=== PATIENT | female | born 1995 | race Caucasian/White ===

== ENCOUNTER 2016-12-05 17:13 | Emergency (ER) | payer OTHER ==
[~2016-12-05] VITALS: Ht 160 cm; Wt 82.7 kg
[~2016-12-05 17:13] MED LIST: IBUP-1542 PO
[2016-12-05 17:23] VITALS: Ht 160 cm; Wt 82.7 kg
== END 2016-12-05 20:41 | disposition left against medical advice (07) ==
LOC: FTE 17:13
DX: Z53.21 Procedure and treatment not carried out due to patient leaving prior to being seen by health care provider (principal)

== ENCOUNTER 2016-12-07 14:04 | Emergency (ER) | payer OTHER ==
[~2016-12-07] VITALS: Wt 100.0 kg
--- NOTE | 2016-12-07 15:01 | ERA ---
ER Documentation Chief Complaint Date/Time DATE: 12/07/16 TIME: 15:00 Chief Complaint L SIDE ABD PAIN FOR THE PAST WEEK. NO N/V/D. NO DYSURIA HPI The patient is 21-year-old female, presenting with epigastric and left sided abdominal discomfort intermittently for 1 week, worse today, worse with eating, /10, associated with nausea and vomiting mostly mucus. She denies similar symptoms previously, he denies fever, chills, neck pain, chest pain, dysuria, diarrhea, constipation. She does not smoke nor drink, currently on her menstrual period Past medical/surgical history: None ROS All systems reviewed and are negative except as per history of present illness. Medications Home Meds Active Scripts Mag Hydrox/Al Hydrox/Simeth (Maalox Advanced Suspension) 355 Ml Oral.susp, 30 ML PO AC MEALS AND BEDTIME, #120 Prov:SANDEEP BAUMAN MD 12/07/16 Ibuprofen* (Motrin*) 600 Mg Tab, 600 MG PO Q6H Y for PAIN AND OR ELEVATED TEMP, #20 TAB Prov:SANDEEP BAUMAN MD 12/07/16 Ibuprofen* (Motrin*) 600 Mg Tab, 600 MG PO Q8, #30 TAB 0 Refills Prov:JHONY BENNETT PA-C 03/07/16 Allergies Allergies: Coded Allergies: No Known Allergy (Unverified , 06/16/15) PMhx/Soc History of Surgery: No Anesthesia Reaction: No Hx Neurological Disorder: No Hx Respiratory Disorders: No Hx Cardiac Disorders: No Hx Psychiatric Problems: No Hx Alcohol Use: No Hx Substance Use: No Hx Tobacco Use: No Physical Exam Vitals Vital Signs Date Time Temp Pulse Resp B/P Pulse Ox O2 Delivery O2 Flow Rate FiO2 12/07/16 19:09 98.4 87 18 114/56 100 Room Air 12/07/16 14:31 98.6 88 21 108/64 98 Physical Exam Const: No acute distress. Head: Atraumatic. Eyes: Normal Conjunctiva. ENT: Normal External Ears, Nose and Mouth. Neck: Full range of motion. No meningismus. Resp: Clear to auscultation bilaterally. Cardio: Regular rate and rhythm, no murmurs. Abd: Soft, non distended, normal bowel sounds, mild epigastric and left lower quadrant discomfort, no rigidity, rebound, CVA, right upper quadrant tenderness Skin: No petechiae or rashes. Back: No midline or flank tenderness. Ext: No cyanosis, or edema. Neur: Awake and alert. No focal deficit Psych: Normal Mood and Affect. Result Diagram: 12/07/16 1535 12/07/16 1535 Results 24 hrs Laboratory Tests Test 12/07/16 15:14 12/07/16 15:35 Bedside Urine Blood 3+ Bedside Urine Glucose (UA) Negative Bedside Urine Ketones (LAB) Negative Bedside Urine Leukocyte Esterase (L Trace Bedside Urine Nitrite (LAB) Negative Bedside Urine Protein (LAB) Negative Bedside Urine pH (LAB) 7.5 Alanine Aminotransferase (ALT/SGPT) 48IU/L Albumin 4.1g/dl Albumin/Globulin Ratio 0.97 Alkaline Phosphatase 66IU/L Anion Gap 16 Aspartate Amino Transf (AST/SGOT) 32IU/L Basophils # 0.010^3/ul Basophils % 0.6% Blood Urea Nitrogen 9mg/dl Calcium Level 9.2mg/dl Carbon Dioxide Level 28mmol/L Chloride Level 104mmol/L Creatinine 0.67mg/dl Direct Bilirubin 0.00mg/dl Eosinophils # 0.110^3/ul Eosinophils % 1.2% Globulin 4.20g/dl Glucose Level 97mg/dl Hematocrit 40.2% Hemoglobin 13.0g/dl Indirect Bilirubin 0.2mg/dl Lipase 37U/L Lymphocytes # 1.710^3/ul Lymphocytes % 24.5% Mean Corpuscular Hemoglobin 29.1pg Mean Corpuscular Hemoglobin Concent 32.3g/dl Mean Corpuscular Volume 90.1fl Mean Platelet Volume 11.2fl Monocytes # 0.510^3/ul Monocytes % 7.9% Neutrophils # 4.510^3/ul Neutrophils % 65.7% Nucleated Red Blood Cells # 0.010^3/ul Nucleated Red Blood Cells % 0.0/100WBC Platelet Count 03926^3/UL Potassium Level 3.9mmol/L Red Blood Count 4.4610^6/ul Red Cell Distribution Width 13.2% Sodium Level 144mmol/L Total Bilirubin 0.2mg/dl Total Protein 8.3g/dl White Blood Count 6.910^3/ul Current Medications Medications (Trade) Dose Ordered Sig/Damien Route PRN Reason Start Time Stop Time Status Last Admin Dose Admin Ketorolac Tromethamine 30 mg 30 mg ONCE STAT IV 12/07/16 16:25 12/07/16 16:26 DC 12/07/16 16:32 Sodium Chloride (NS) 1,000 ml @ 1,000 mls/hr Q1H ONCE IV 12/07/16 17:30 12/07/16 18:29 DC 12/07/16 17:13 Morphine Sulfate (morphine) 2 mg ONCE ONCE IV 12/07/16 17:30 12/07/16 17:31 DC 12/07/16 17:12 Ondansetron HCl (Zofran Inj) 4 mg ONCE STAT IV 12/07/16 17:02 12/07/16 17:04 DC 12/07/16 17:12 Procedures/[place] [id number] Radiology Main Line: [phone] DIAGNOSTIC IMAGING REPORT Patient: COREY SHUKLA : 1995 Age: 21 Sex: F MR #: [id number] DOS: 12/07/16 1711 Ordering MD: SANDEEP BAUMAN MD Location: [facility] Room/Bed: PROCEDURE: US Pelvis CLINICAL INDICATION: Pain TECHNIQUE: Multiple sonographic images of the pelvis were obtained utilizing a transabdominal and endovaginal technique. The images were reviewed on a PACS workstation. COMPARISON: Pelvic ultrasound from 09/14/2014 LMP: 12/06/2016 FINDINGS: The uterus measures 6.5 x 3.0 x 4.1 cm. The endometrial echo complex measures 4 mm in thickness. No discrete lesion is seen. The right ovary measures 2.7 x 1.4 x 1.7 cm. The left ovary measures 3.0 x 1.8 x 2.0 cm. There is normal vascular flow in both ovaries. No significant ovarian lesions are seen. No significant pelvic free fluid is identified. IMPRESSION: Unremarkable pelvic ultrasound, as above. RPTAT: EE Physician Dustin Date Time Electronically viewed and signed by Amarjit Vivar Physician on 12/07/2016 18:07 RA/ CC: SANDEEP BAUMAN MD MEDICAL MAKING DECISION: The patient is a 21-year-old female, presenting with acute abdominal pain of unclear etiology, most likely gastritis. She was treated with Toradol 30 mg IV, morphine 2 IV for pain, Zofran 4 mg IV for nausea , 1 L normal saline for clinical dehydration with good response. The differential diagnoses considered include but are not limited to cholelithiasis , cholecystitis, cystitis, pancreatitis, hepatitis, gastritis, peptic ulcer disease, gastric ulcer, appendicitis, diverticulitis, cholangitis, choledocholithiasis, partial small bowel obstruction. Departure Diagnosis: Primary Impression: Abdominal pain Condition: Good Comments She was discharged with Maalox and Motrin and advised to return in 8 hours for reevaluation, sooner if any concern SANDEEP BAUMAN MD Dec 07, 2016 15:01
[2016-12-07 15:12] LABS: URINE BLOOD (Dip) POC 3+ (NEGATIVE)
[2016-12-07 16:02] LABS: ADD SCAN DIFF NO
[2016-12-07 16:17] LABS: BASOPHILS % 0.6 % (0.0-2.0); EOSINOPHILS # 0.1 10^3/ul (0.0-0.5); EOSINOPHILS % 1.2 % (0.0-7.0); HEMATOCRIT 40.2 % (37.0-47.0); LYMPHOCYTES # 1.7 10^3/ul (0.8-2.9); LYMPHOCYTES % 24.5 % (15.0-51.0); MEAN CORPUSCULAR HEMOGLOBIN 29.1 pg (29.0-33.0); MEAN CORPUSCULAR HGB CONC 32.3 g/dl (32.0-37.0); MEAN CORPUSCULAR VOLUME 90.1 fl (82.0-101.0); MEAN PLATELET VOLUME 11.2 fl (7.4-10.4); MONOCYTE # 0.5 10^3/ul (0.3-0.9); MONOCYTES % 7.9 % (0.0-11.0); NEUTROPHIL # 4.5 10^3/ul (1.6-7.5); NEUTROPHILS % 65.7 % (39.0-77.0); PLATELET COUNT 253 10^3/UL (140-415); RED BLOOD COUNT 4.46 10^6/ul (4.20-5.40); RED CELL DISTRIBUTION WIDTH 13.2 % (11.5-14.5); WHITE BLOOD COUNT 6.9 10^3/ul (4.8-10.8)
[2016-12-07 16:22] LABS: ALBUMIN 4.1 g/dl (3.3-4.9); POTASSIUM 3.9 mmol/L (3.5-5.1)
[2016-12-07 16:24] LABS: CREATININE 0.67 mg/dl (0.44-1.00)
[2016-12-07 16:25] LABS: ALBUMIN/GLOBULIN RATIO 0.97; BILIRUBIN,INDIRECT 0.2 mg/dl (0-1.1); BILIRUBIN,TOTAL 0.2 mg/dl (0.2-1.3); CALCIUM 9.2 mg/dl (8.4-10.2); TOTAL PROTEIN 8.3 g/dl (6.1-8.1)
[2016-12-07] MEDS ORDERED: KETOROLAC 30 MG INJ IV STA (16:25)
[2016-12-07] MEDS ORDERED: ONDANSETRON 4 MG INJ IV STA (17:02)
[2016-12-07] MEDS ORDERED: morphine 2 MG INJ IV ONE (17:30)
[2016-12-07] MEDS ORDERED: SOD CHLORIDE 0.9% 1,000 ML IV ONE (17:30)
--- NOTE | 2016-12-07 18:07 | RADRPT ---
PROCEDURE: US Pelvis CLINICAL INDICATION: Pain TECHNIQUE: Multiple sonographic images of the pelvis were obtained utilizing a transabdominal and endovaginal technique. The images were reviewed on a PACS workstation. COMPARISON: Pelvic ultrasound from 09/14/2014 LMP: 12/06/2016 FINDINGS: The uterus measures 6.5 x 3.0 x 4.1 cm. The endometrial echo complex measures 4 mm in thickness. N o discrete lesion is seen. The right ovary measures 2.7 x 1.4 x 1.7 cm. The left ovary measures 3.0 x 1.8 x 2.0 cm. There is no rmal vascular flow in both ovaries. No significant ovarian lesions are seen. No significant pelvic free fluid is identified. IMPRESSION: Unremarkable pelvic ultrasound, as above. RPTAT: EE Physician Dustin Date Time Electronically viewed and signed by Physician Dustin on 12/07/2016 18:07 /
[2016-12-07] MEDS ORDERED: IBUP-1542 PO (18:51)
[2016-12-07] MEDS ORDERED: MAG355OR14 PO (18:52)
[2016-12-07 19:09] VITALS: BP 114/56; PULSE 87; RESP 18; TEMP 98.4
== END 2016-12-07 18:53 | disposition home or self-care (01) ==
LOC: FTE 14:04
DX: R10.13 Epigastric pain (principal); R11.2 Nausea with vomiting, unspecified
CPT/HCPCS: 36415; 76856; 80053; 81003; 83690; 85025; 96374; 96375; J1885; J2270; J2405; J7030; Z7502

== ENCOUNTER → 2017-04-29 | Outpatient (CLI) | payer OTHER ==
[~2017-04-29] MED LIST changes: +MAG355OR14 PO
== END | disposition home or self-care (01) ==
LOC: HKI 13:59
PROVIDERS: ATTEND Orthopaedic Surgery
DX: M25.562 Pain in left knee (principal)
CPT/HCPCS: G0463

== ENCOUNTER 2017-05-07 13:00 | Emergency (ER) | payer OTHER ==
[~2017-05-07] VITALS: Ht 160 cm; Wt 76.0 kg
[2017-05-07 13:01] VITALS: Ht 160 cm; Wt 76.0 kg
[2017-05-07] MEDS ORDERED: KETOROLAC 30 MG INJ IM STA (13:54)
--- NOTE | 2017-05-07 14:27 | ERD ---
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 Mom states that she has been seeing an podiatrist orthopedic, Dr. New who prescribed her meloxicam for her symptoms. Mom states that she has not had an MRI of her left knee. Denies trauma or injury. States that it pain comes and goes. States that the pain does not radiate up or down her leg. Denies fever or chills. Denies abdominal pain, nausea, vomiting or diarrhea. Denies chest pain or cough or shortness of breath. Mom states that she has taken gabapentin in the past which is helped with her symptoms. ROS All systems reviewed and are negative except as per history of present illness. Medications Home Meds Active Scripts Gabapentin* (Gabapentin*) 100 Mg Capsule, 100 MG PO TID, #30 CAP Prov:TIERNEY MOCK PA-C 05/07/17 Methylprednisolone* (Medrol* DOSE PACK) 4 Mg/Dose-Pack Tab.ds.pk, 4 MG PO . DIRECTED for 4 Days, PACKET Prov:TIERNEY MOCK PA-C 05/07/17 Mag Hydrox/Al Hydrox/Simeth (Maalox Advanced Suspension) 355 Ml Oral.susp, 30 ML PO AC MEALS AND BEDTIME, #120 Prov:SANDEEP BAUMAN MD 12/07/16 Ibuprofen* (Motrin*) 600 Mg Tab, 600 MG PO Q6H Y for PAIN AND OR ELEVATED TEMP, #20 TAB Prov:SANDEEP BAUMAN MD 12/07/16 Ibuprofen* (Motrin*) 600 Mg Tab, 600 MG PO Q8, #30 TAB 0 Refills Prov:JHONY BENNETT PA-C 03/07/16 Allergies Allergies: Coded Allergies: No Known Allergy (Unverified , 06/16/15) PMhx/Soc History of Surgery: No Anesthesia Reaction: No Hx Neurological Disorder: No Hx Respiratory Disorders: No Hx Cardiac Disorders: No Hx Psychiatric Problems: No Hx Alcohol Use: No Hx Substance Use: No Hx Tobacco Use: No Smoking Status: Never smoker FmHx Family History: No coronary disease, No diabetes, No other Physical Exam Vitals Vital Signs Date Time Temp Pulse Resp B/P Pulse Ox O2 Delivery O2 Flow Rate FiO2 05/07/17 13:01 99.4 98 18 115/71 97 Physical Exam GENERAL: Well-developed, well-nourished female. Appears in no acute distress. HEAD: Normocephalic, atraumatic. NECK: Supple. No lymphadenopathy or thyromegaly. No meningismus. negative kernig. negative brudinski. LUNG: Clear to auscultation bilaterally. No rhonchi, wheezing, rales or coarse breath sounds. HEART: Regular rate and rhythm. No murmurs, rubs or gallops. ABDOMEN: No scars, ecchymosis or rashes noted. Soft, nontender, and nondistended. Positive bowel sounds in all four quadrants. No rebound tenderness , no guarding. (-) McBurneys point tenderness. No CVA tenderness. BACK: No midline tenderness. Extremities: Equal pulses bilaterally. No peripheral clubbing, cyanosis or edema. No unilateral leg swelling. Tenderness to the left anterior knee. No erythema or swelling. No pain above or below the knee joint. No calf swelling. No palpable cord. Limited in range of motion but able to bend NEUROLOGIC: Alert and oriented. Moving all four extremities. Normal speech. unSteady gait. SKIN: Normal color. Warm and dry. No rashes or lesions. Capillary refill < 2 seconds Results 24 hrs Current Medications Medications (Trade) Dose Ordered Sig/Damien Route PRN Reason Start Time Stop Time Status Last Admin Dose Admin Ketorolac Tromethamine (Toradol) 30 mg ONCE STAT IM 05/07/17 13:54 05/07/17 13:55 DC 05/07/17 14:09 Procedures/MDM ER COURSE: I kept the patient and/or family informed of laboratory and diagnostic imaging results throughout the emergency room course. EKG, MONITORS, & DIAGNOSTIC IMAGING: [place] [address] Radiology Main Line: [phone] DIAGNOSTIC IMAGING REPORT Patient: COREY SHUKLA : 1995 Age: 21 Sex: F MR #: [id number] DOS: 05/07/17 1354 Ordering MD: TIERNEY MOCK PA-C Location: [facility] Room/Bed: PROCEDURE: Left knee x-ray CLINICAL INDICATION: Knee pain TECHNIQUE: AP, lateral and tunnel views of the left knee were obtained. COMPARISON: 04/07/2016 FINDINGS: There is normal mineralization. No acute fracture or dislocation is seen. There are no significant degenerative changes. There is no joint effusion. There is no significant soft tissue swelling. RPTAT: AA IMPRESSION: Normal x-ray of the left knee. .Randall Livingston MD, MD Date Time Electronically viewed and signed by .Randall Livingston MD, on 05/07/2017 14: 39 .S/ CC: TIERNEY MOCK PAKeenan PROCEDURES: Negative test. Toradol 30 mg IM given. Tolerated well with no adverse reaction. MEDICAL DECISION MAKING: This is a 21-year-old female who presents with left knee pain on and off 1 year. Vital signs were reviewed. Patient is afebrile. Patient is not hypoxic. Patient is not toxic or ill-appearing. Patient had improvement in symptoms after Toradol was given. Patient was given an Ayan wrap here in the ED. Neurovascularly intact post placement. No further workup was done in the ED. Patient to follow-up with orthopedics for further evaluation. Low suspicion for dislocation, fracture, septic joint, compartment syndrome, osteomyelitis, cellulitis, avascular necrosis, neurological injury, vascular injury, tendon laceration. Patient able to move knee. No pain above or below the knee joint. No further x-rays done. There is no swelling or erythema or tenderness to palpation. DISCHARGE: At this time, patient is stable for discharge and outpatient management with no new complaints during the ER course. Patient was sent home with gabapentin and Medrol Dosepak and Ayan wrap. Patient to follow-up with orthopedics in 1-2 days. Names of orthopedics in the area given to patient.. Patient will be discharged home with instructions to recheck for new or worsening symptoms such as fever, nausea, weakness, LOC and to follow up with primary care in the next 1 -2 days. Patient was advised to return to the ER for any new or worsening symptoms. Plan was discussed and patient and/or family understands and agrees. Home instructions were given. Departure Diagnosis: Primary Impression: Left knee pain Chronicity: chronic Qualified Code: M25.562 - Chronic pain of left knee Condition: Stable TIERNEY MOCK PA-C May 07, 2017 14:27
--- NOTE | 2017-05-07 14:40 | RADRPT ---
PROCEDURE: Left knee x-ray CLINICAL INDICATION: Knee pain TECHNIQUE: AP, lateral and tunnel views of the left knee were obtained. COMPARISON: 04/07/2016 FINDINGS: There is normal mineralization. No acute fracture or dislocation is seen. There are no significant degenerative changes. There is no joint effusion. There is no significant soft tissue swelling. RPTAT: AA IMPRESSION: Normal x-ray of the left knee. .Randall Livingston MD, MD Date Time Electronically viewed and signed by .Randall Livingston MD, on 05/07/2017 14:39 .S/
[2017-05-07] MEDS ORDERED: GABA100C14 PO (14:54)
[2017-05-07] MEDS ORDERED: MED4DP PO (14:54)
== END 2017-05-07 15:18 | disposition home or self-care (01) ==
LOC: FTE 13:00
DX: M25.562 Pain in left knee (principal)
CPT/HCPCS: 73562; 96372; J1885; Z7502

== ENCOUNTER 2017-08-07 19:48 | Emergency (ER) | payer OTHER ==
[~2017-08-07] VITALS: Ht 165.1 cm; Wt 76.5 kg
[~2017-08-07 19:48] MED LIST changes: +GABA100C14 PO; +MED4DP PO
[2017-08-07 19:50] VITALS: Ht 165.1 cm; Wt 76.5 kg
[2017-08-07] MEDS ORDERED: ONDANSETRON 4 MG INJ IV STA (20:08)
[2017-08-07] MEDS ORDERED: morphine 2 MG INJ IV STA (20:08)
[2017-08-07] MEDS ORDERED: SOD CHLORIDE 0.9% 1,000 ML IV STA (20:08)
--- NOTE | 2017-08-07 20:36 | ERD ---
ER Documentation Chief Complaint Chief Complaint abd pain i2dqndl after eating, worse last 3 days. nausea/diarrhea HPI 22-year-old female presents to emergency department for complaints of lower abdominal pain for the last 3 days, patient describes the pain as sharp pain, 6/ 10 scale, complaining of nausea and some episodes of diarrhea at times. Patient has been having epigastric pain for 1 month now, was diagnosed to have gastritis. Patient is currently taking medication for gastritis. At this time , patient's pain is different. Patient denies any fever or chills. ROS All systems reviewed and are negative except as per history of present illness. Medications Home Meds Active Scripts Gabapentin* (Gabapentin*) 100 Mg Capsule, 100 MG PO TID, #30 CAP Prov:TIERNEY MOCK PA-C 05/07/17 Methylprednisolone* (Medrol* DOSE PACK) 4 Mg/Dose-Pack Tab.ds.pk, 4 MG PO . DIRECTED for 4 Days, PACKET Prov:TIERNEY MOCK PA-C 05/07/17 Mag Hydrox/Al Hydrox/Simeth (Maalox Advanced Suspension) 355 Ml Oral.susp, 30 ML PO AC MEALS AND BEDTIME, #120 Prov:SANDEEP BAUMAN MD 12/07/16 Ibuprofen* (Motrin*) 600 Mg Tab, 600 MG PO Q6H Y for PAIN AND OR ELEVATED TEMP, #20 TAB Prov:SANDEEP BAUMAN MD 12/07/16 Ibuprofen* (Motrin*) 600 Mg Tab, 600 MG PO Q8, #30 TAB 0 Refills Prov:JHONY BENNETT PA-C 03/07/16 Allergies Allergies: Coded Allergies: No Known Allergy (Unverified , 08/07/17) PMhx/Soc Medical and Surgical Hx: pt denies Medical Hx History of Surgery: Yes (hernia repair) Anesthesia Reaction: No Hx Neurological Disorder: No Hx Respiratory Disorders: No Hx Cardiac Disorders: No Hx Psychiatric Problems: No Hx Alcohol Use: No Hx Substance Use: No Hx Tobacco Use: No Smoking Status: Never smoker FmHx Family History: No coronary disease, No diabetes, No other Physical Exam Vitals Vital Signs Date Time Temp Pulse Resp B/P Pulse Ox O2 Delivery O2 Flow Rate FiO2 08/07/17 19:50 98.0 90 18 129/71 98 Physical Exam GENERAL: The patient is well developed and appropriate for usual state of health, in no apparent distress. CHEST: Clear to auscultation bilaterally. There are no rales, wheezes or rhonchi. HEART: Regular rate and rhythm. No murmurs, clicks, rubs or gallops. No S3 or S4. ABDOMEN: Soft, nontender and nondistended. Good bowel sounds. No rebound or guarding. No gross peritonitis. No gross organomegaly or masses. No Hilliard sign or McBurney point tenderness. BACK: No midline or flank tenderness. EXTREMITIES: Equal pulses bilaterally. There is no peripheral clubbing, cyanosis or edema. No focal swelling or erythema. Full range of motion. Grossly neurovascularly intact. NEURO: Alert and oriented. Cranial nerves 2-12 intact. Motor strength in all 4 extremities with 5/5 strength. Sensation grossly intact. Normal speech and gait. SKIN: There is no apparent rash or petechia. The skin is warm and dry. HEMATOLOGIC AND LYMPHATIC: There is no evidence of excessive bruising or lymphedema. No gross cervical, axillary, or inguinal lymphadenopathy. Result Diagram: 08/07/17203408/07/172034 Results 24 hrs Laboratory Tests Test 08/07/17 20:18 08/07/17 20:35 Urine Color YELLOW Urine Clarity CLEAR Urine pH 7.0 Urine Specific [place] 1.016 Urine Ketones NEGATIVEmg/dL Urine Nitrite NEGATIVEmg/dL Urine Bilirubin NEGATIVEmg/dL Urine Urobilinogen NEGATIVEmg/dL Urine Leukocyte Esterase NEGATIVELeu/ul Urine Hemoglobin NEGATIVEmg/dL Urine Glucose NEGATIVEmg/dL Urine Total Protein NEGATIVEmg/dl White Blood Count 7.910^3/ul Red Blood Count 4.1010^6/ul Hemoglobin 11.9g/dl Hematocrit 37.3% Mean Corpuscular Volume 91.0fl Mean Corpuscular Hemoglobin 29.0pg Mean Corpuscular Hemoglobin Concent 31.9g/dl Red Cell Distribution Width 12.8% Platelet Count 89077^3/UL Mean Platelet Volume 11.3fl Neutrophils % 58.3% Lymphocytes % 32.3% Monocytes % 7.6% Eosinophils % 0.9% Basophils % 0.6% Nucleated Red Blood Cells % 0.0/100WBC Neutrophils # 4.610^3/ul Lymphocytes # 2.510^3/ul Monocytes # 0.610^3/ul Eosinophils # 0.110^3/ul Basophils # 0.110^3/ul Nucleated Red Blood Cells # 0.010^3/ul Sodium Level 142mmol/L Potassium Level 3.9mmol/L Chloride Level 103mmol/L Carbon Dioxide Level 29mmol/L Anion Gap 14 Blood Urea Nitrogen 14mg/dl Creatinine 0.71mg/dl Glucose Level 88mg/dl Calcium Level 9.1mg/dl Total Bilirubin 0.2mg/dl Direct Bilirubin 0.00mg/dl Indirect Bilirubin 0.2mg/dl Aspartate Amino Transf (AST/SGOT) 20IU/L Alanine Aminotransferase (ALT/SGPT) 28IU/L Alkaline Phosphatase 72IU/L Total Protein 7.6g/dl Albumin 4.7g/dl Globulin 2.90g/dl Albumin/Globulin Ratio 1.62 Lipase 62U/L Current Medications Medications (Trade) Dose Ordered Sig/Damien Route PRN Reason Start Time Stop Time Status Last Admin Dose Admin Sodium Chloride (NS) 1,000 ml @ 1,000 mls/hr Q1H STAT IV 08/07/17 20:08 08/07/17 21:07 DC 08/07/17 20:46 Morphine Sulfate (morphine) 2 mg ONCE STAT IV 08/07/17 20:08 08/07/17 20:09 DC 08/07/17 20:46 Ondansetron HCl (Zofran Inj) 4 mg ONCE STAT IV 08/07/17 20:08 08/07/17 20:09 DC 08/07/17 20:46 IV Flush 10 ml 10 ml STK-MED ONCE .ROUTE 08/07/17 21:11 08/07/17 21:12 DC 08/07/17 21:44 Sodium Chloride (NS) 100 ml @ ud STK-MED ONCE .ROUTE 08/07/17 21:11 08/07/17 21:12 DC 08/07/17 21:45 Iohexol (Omnipaque 300mg/ ml) 150 ml STK-MED ONCE .ROUTE 08/07/17 21:11 08/07/17 21:12 DC 08/07/17 21:44 Patient was given medication for pain here in emergency department, after treatment, patient verbalized feeling much better. Patient's pain is improved. Patient was given Zofran here in the emergency department. After treatment, patient was able to tolerate po fluids here in the emergency department without any vomiting. There is no signs and symptoms of dehydration. Normal saline IV bolus was given here in emergency department for rehydration, patient tolerated IV fluids. PROCEDURE: CT abdomen and pelvis with intravenous contrast. CLINICAL INDICATION: Pain. TECHNIQUE: CT of the abdomen/pelvis was performed utilizing axial images with reconstructions in sagittal and coronal planes after uneventful administration of 100 cc Omnipaque 300. The administered radiation dose is CTDI 12.5 mGy, DLP 649.2 mGy-cm. One or more of the following dose reduction techniques were used: automated exposure control, adjustment of the mA and/or kV according to patient size and/or use of iterative reconstruction technique. COMPARISON: 09/25/14 FINDINGS: Visualized Chest: The visualized lung bases are clear. Abdomen: The liver, spleen, pancreas, gallbladder,and adrenal glands are unremarkable. The kidneys are without hydronephrosis. No definite urinary calculi are seen. There is no evidence of bowel obstruction. The appendix is normal. No intra- abdominal free air is seen. There is no evidence of intra-abdominal adenopathy or free fluid. Pelvis: There is no evidence of pelvic adenopathy. The uterus and ovaries are without enlargement. The urinary bladder is unremarkable. There is trace pelvic free fluid. Osseous structures: Unremarkable. IMPRESSION: No acute findings. RPTAT: HIKT .Adrian Alba MD, MD Date Time Electronically viewed and signed by .Adrian Alba MD, on 08/07/2017 22:46 .T/ CC: CK MARTINEZ [employer] Procedures/MDM Medical Decision Making: Symptoms most likely is consistent with acute gastroenteritis. no symptoms of dehydration, There is low suspicion for abdominal emergencies at this time. Patients abdominal exam is normal at this time. Patients radiology exam does not show any abdominal emergencies at this time. There is low suspicion for appendicitis, cholecystitis, abdominal aortic aneurysms or peritonitis at this time. There is low suspicion for sepsis. Patient appears well and is hemodynamically stable. Disposition: Home. Condition: Stable Prescription Zofran Bentyl,Hope Instructions: Patient is advised to take medications as prescribed. Patient is advised to rest, increase fluid intake and do brat diet for next 1-2 days and progress as tolerated. Patient is advised that if symptoms are worse, severe abdominal pain, uncontrolled vomiting, high fever, severe flank pain, worst signs and symptoms, to return to the emergency department immediately. Otherwise, patient can follow up with primary care doctor in 5-7 days. do stool studies with primary care doctor. Disclaimer: Inadvertent spelling and grammatical errors are likely due to EHR/ dictation software use and do not reflect on the overall quality of patient care. Also, please note that the electronic time recorded on this note does not necessarily reflect the actual time of the patient encounter. Departure Diagnosis: Primary Impression: Viral gastroenteritis Condition: Stable Patient Instructions: Gastroenteritis, Viral (6Y-Adult) Additional Instructions: Patient is advised to take medications as prescribed. Patient is advised to rest , increase fluid intake and do brat diet for next 1-2 days and progress as tolerated. Patient is advised that if symptoms are worse, severe abdominal pain , uncontrolled vomiting, high fever, severe flank pain, worst signs and symptoms , to return to the emergency department immediately. Otherwise, patient can follow up with primary care doctor in 5-7 days. do stool studies with primary care doctor. CK MARTINEZ NP Aug 07, 2017 20:36 CK MARTINEZ NP Aug 07, 2017 20:36
[2017-08-07 21:07] LABS: BASOPHIL # 0.1 10^3/ul (0.0-0.1); BASOPHILS % 0.6 % (0.0-2.0); EOSINOPHILS # 0.1 10^3/ul (0.0-0.5); EOSINOPHILS % 0.9 % (0.0-7.0); HEMATOCRIT 37.3 % (37.0-47.0); HEMOGLOBIN 11.9 g/dl (12.0-16.0); LYMPHOCYTES # 2.5 10^3/ul (0.8-2.9); LYMPHOCYTES % 32.3 % (15.0-51.0); MEAN CORPUSCULAR HGB CONC 31.9 g/dl (32.0-37.0); MEAN PLATELET VOLUME 11.3 fl (7.4-10.4); MONOCYTE # 0.6 10^3/ul (0.3-0.9); MONOCYTES % 7.6 % (0.0-11.0); NEUTROPHIL # 4.6 10^3/ul (1.6-7.5); NEUTROPHILS % 58.3 % (39.0-77.0); PLATELET COUNT 234 10^3/UL (140-415); RED CELL DISTRIBUTION WIDTH 12.8 % (11.5-14.5); WHITE BLOOD COUNT 7.9 10^3/ul (4.8-10.8)
[2017-08-07 21:10] LABS: ADD UMIC NO; UR ASCORBIC ACID NEGATIVE (NEGATIVE); UR BILIRUBIN (Dip) NEGATIVE (NEGATIVE); UR BLOOD (Dip) NEGATIVE (NEGATIVE); UR CLARITY CLEAR (CLEAR); UR COLOR YELLOW (YELLOW); UR GLUCOSE (Dip) NEGATIVE (NEGATIVE); UR KETONES (Dip) NEGATIVE (NEGATIVE); UR LEUKOCYTE ESTERASE (Dip) NEGATIVE Leu/ul (NEGATIVE); UR NITRITE (Dip) NEGATIVE (NEGATIVE); UR SPECIFIC GRAVITY (Dip) 1.016 (1.003-1.030); UR TOTAL PROTEIN (Dip) NEGATIVE (NEGATIVE); UR UROBILINOGEN (Dip) NEGATIVE (NEGATIVE)
[2017-08-07] MEDS ORDERED: SOD CHLORIDE 0.9% 100 ML ONE (21:11)
[2017-08-07] MEDS ORDERED: IOHEXOL 300MG/ML 150 ML BTL ONE (21:11)
[2017-08-07 21:26] LABS: ALBUMIN 4.7 g/dl (3.3-4.9); ALBUMIN/GLOBULIN RATIO 1.62; BILIRUBIN,INDIRECT 0.2 mg/dl (0-1.1); BILIRUBIN,TOTAL 0.2 mg/dl (0.2-1.3); CALCIUM 9.1 mg/dl (8.4-10.2); CREATININE 0.71 mg/dl (0.44-1.00); POTASSIUM 3.9 mmol/L (3.5-5.1); TOTAL PROTEIN 7.6 g/dl (6.1-8.1)
--- NOTE | 2017-08-07 22:47 | RADRPT ---
PROCEDURE: CT abdomen and pelvis with intravenous contrast. CLINICAL INDICATION: Pain. TECHNIQUE: CT of the abdomen/pelvis was performed utilizing axial images with reconstructions in s agittal and coronal planes after uneventful administration of 100 cc Omnipaque 300. The administered radiation dose is CTDI 12.5 mGy, DLP 649.2 mGy-cm. One or more of the following dose reduction tech niques were used: automated exposure control, adjustment of the mA and/or kV according to patient si ze and/or use of iterative reconstruction technique. COMPARISON: 09/25/14 FINDINGS: Visualized Chest: The visualized lung bases are clear. Abdomen: The liver, spleen, pancreas, gallbladder,and adrenal glands are unremarkable. The kidneys are without hydronephrosis. No definite urinary calculi are seen. There is no evidence of bowel obstruction. The appendix is normal. No intra-abdominal free air is seen. There is no evidence of intra-abdominal adenopathy or free fluid. Pelvis: There is no evidence of pelvic adenopathy. The uterus and ovaries are without enlargement. The uri nary bladder is unremarkable. There is trace pelvic free fluid. Osseous structures: Unremarkable. IMPRESSION: No acute findings. RPTAT: HIKT .Adrian Alba MD, MD Date Time Electronically viewed and signed by .Adrian Alba MD, MD on 08/07/2017 22:46 .T/
[2017-08-07] MEDS ORDERED: DICY10CA60 PO (23:12)
[2017-08-07] MEDS ORDERED: ONDA4TAB14 PO (23:12)
[2017-08-07] MEDS ORDERED: IBUP-1542 PO (23:12)
[2017-08-07] MEDS ORDERED: HYDR-906 PO (23:12)
== END 2017-08-07 23:38 | disposition home or self-care (01) ==
LOC: FTE 19:48
DX: A08.4 Viral intestinal infection, unspecified (principal)
CPT/HCPCS: 36415; 74177; 80053; 81003; 83690; 85025; 96374; 96375; J2270; J2405; J7030; Q9967; Z7502; Z7610

== ENCOUNTER 2017-10-26 05:41 | Day surgery (SDC) | END 2017-10-26 13:34 | disposition home or self-care (01) ==